=== PATIENT | male | born 1975 | race Two or more races ===

== ENCOUNTER 2017-09-23 08:27 | Emergency (ER) | payer SELFPAY ==
[~2017-09-23] VITALS: Ht 177.8 cm; Wt 68.0 kg
[2017-09-23 08:27] VITALS: BP 0/0
--- NOTE | 2017-09-23 08:37 | Emergency Room Report ---
History of Present Illness General Chief Complaint: cardiac arrest Source: EMS Present Illness HPI Patient is an approximately 42-year-old male who presented after an unwitnessed cardiac arrest. Patient was brought in by EMS. The patient was noted to have CPR approximately 20 minutes prior to arrival. The patient has a known past medical history. Patient was found unresponsive. He was noted to have facial trauma. Patient had intraosseous line attempted by EMS. Patient also had left EJ placed by EMS Allergies: Coded Allergies: UNABLE TO ASSESS (Unverified , 09/23/17) Full arrest/Unresponsive Patient History Past Medical History: see triage record Reviewed Nursing Documentation: PMH: Agreed, PSxH: Agreed Nursing Documentation-PMH Past Medical History Deferred: Patient Unconscious Review of Systems All Other Systems: limited - by acuity Physical Exam Head: other - facial trauma, Eyes: bilateral eye other - pupils dilated ENT: other - blood both nares, daniela airway in place Neck: normal inspection Respiratory: other - decreased breath sounds with bagging Cardiovascular #1: other - absent rhythm, asystole Neurologic: other - unresponsive, absent reflexes Procedures Intubation Intubation : Intubation Method: orotracheal Tube Size (cm): 7.5 Breath Sounds after Intubation: equal Intubation Complications: no complications Post Intubation Xray: No Attempts: One Patient Tolerated: Other - no return of circulation Complications: None Medical Decision Making Diagnostic Impression: Primary Impression: Cardiac arrest Additional Impressions: Facial abrasion Abrasion of both knees Upper GI hemorrhage ER Course The patient was noted to be undergoing CPR. The patient was noted to have dark blood blood from both nares there was dark material in his oropharynx consistent with either nasal blood or gastro-intestinal blood. The patient had no response to CPR or warming measures.The patient's care was removed and patient was intubated after laryngoscopy x1 with a 7.5 ET tube. Patient was given Narcan as well as IV epinephrine. The bedside ultrasound showed no evidence of cardiac activity. The patient was pronounced at 0818 see code sheet for full medication. Scripts Unable to Obtain Active Prescriptions or Reported Meds Ralph Kang Sep 23, 2017 08:37
[2017-09-23 12:53] VITALS: BP 0/0
== END 2017-09-23 13:00 | disposition expired ==
LOC: EDBD 08:27 → EMR 09:05
DX: I46.9 Cardiac arrest, cause unspecified (principal); S00.81XA Abrasion of other part of head, initial encounter; S80.212A Abrasion, left knee, initial encounter; S80.211A Abrasion, right knee, initial encounter; X58.XXXA Exposure to other specified factors, initial encounter; Y92.410 Unspecified street and highway as the place of occurrence of the external cause; K92.2 Gastrointestinal hemorrhage, unspecified
CPT/HCPCS: 31500; 92950; 99291; J0171